=== PATIENT | female | born 1960 | race Caucasian/White ===

== ENCOUNTER → 2024-12-08 | Outpatient (CLI) | payer MEDICARE ==
[2024-12-08 12:29] LABS: Source, Urine Clean Catch
[2024-12-08 16:22] LABS: Appearance, Urine Clear (Clear); Bilirubin, Urine Neg (Neg); Blood, Urine 3+ (Neg); Color, Urine Yellow (P-Yellow); Glucose Qualitative, Urine Neg (Neg); Ketones, Urine Neg (Neg); Leukocyte Esterase, Urine Neg (Neg); Nitrite, Urine Neg (Neg); Protein, Urine Neg (Neg); Urobilinogen, Urine NORM (Normal)
[2024-12-08 16:34] LABS: Bacteria Few /hpf; Squamous Epithelial Cells Mod /hpf (Few); White Blood Cells, Urine 0-2 /hpf (0-5)
[2024-12-08 20:41] LABS: Free Thyroxine 1.03 ng/dL (0.70-1.60); Thyroid Stimulating Hormone 4.78 uIU/mL (0.360-4.800)
== END | disposition home or self-care (01) ==
LOC: LAB 12:26 → LAB SHORT 12:26
PROVIDERS: Physician Assistant
DX: E03.9 Hypothyroidism, unspecified (principal); R30.0 Dysuria
CPT/HCPCS: 36415; 81001; 84439; 84443

== ENCOUNTER 2025-05-08 11:05 | Day surgery (SDC) | payer OTHER, MEDICARE ==
[~2025-05-08] VITALS: Ht 167.6 cm; Wt 166.4 kg
[2025-05-08] VITALS (10 sets, daily range): BP systolic 96–161; BP diastolic 49–86
[~2025-05-08 11:05] MED LIST: ASPIR 8181 M1 PO; CYCL10 PO; FURO20 PO; OXYC5 PO; Synthroid200 MCG PO
--- NOTE | 2025-05-08 11:52 | NUR ---
Ambulatory in Day Surgery. History, Chart, Medications and Allergies reviewed before start of procedure. Patient confirms NPO status and agrees with scheduled surgery. Pre-Op teaching done. Pt verbalizes understanding. Patient States Post-Procedure ride home has been arranged. Pt belongings placed underneath gurney for safekeeping. Pt glasses in belongings bag underneath gurney for safekeeping.
[2025-05-08] MEDS ORDERED: FentaNYL Citrate 50 MCG/ML 2 ML Injection ONE (12:28)
[2025-05-08] MEDS ORDERED: Rocuronium Bromide 10 MG/ML 5ML Injection IV ONE (12:47)
[2025-05-08] MEDS ORDERED: SuccINYLCHOLINE Chloride 100 MG/5 ML 5MLSYR ONE (12:47)
[2025-05-08] MEDS ORDERED: Dexamethasone Sod Phos 10 MG/ML 1ML VIAL ONE (12:48)
[2025-05-08] MEDS ORDERED: Ondansetron HCl 2 MG / ML 2ML Vial ONE (12:48)
[2025-05-08] MEDS ORDERED: Sugammadex Sodium 200 MG/2ML SDV (100 MG/ML) ONE (12:48)
[2025-05-08] MEDS ORDERED: Ketorolac Tromethamine 30mg Vial ONE (12:48)
[2025-05-08] MEDS ORDERED: HYDROmorphone HCl/Pf 1MG SYR IV PRN (12:55)
[2025-05-08] MEDS ORDERED: Morphine Sulfate 4 MG/1 ML Injection IV PRN (12:55)
[2025-05-08] MEDS ORDERED: Metoclopramide HCl 5MG / ML 2ML Vial IV PRN (12:55)
[2025-05-08] MEDS ORDERED: Ondansetron HCl 2 MG / ML 2ML Vial IV PRN (12:55)
[2025-05-08] MEDS ORDERED: Albuterol 2.5 MG/3 ML VIAL INH PRN (13:00)
[2025-05-08] MEDS ORDERED: FentaNYL Citrate 50 MCG/ML 2 ML Injection IV PRN (13:00)
[2025-05-08] MEDS ORDERED: OxyCODONE 5 mg/Acetamin 325 mg TABLET PO PRN (13:20)
[2025-05-08] MEDS ORDERED: HYDROmorphone HCl/Pf 1MG SYR ONE (13:26)
--- NOTE | 2025-05-08 14:35 | NUR ---
Discharge instructions reviewed with patient. Patient verbalizes understanding. Copy given to patient to take home. Discharged via wheelchair to private car for ride home.
== END 2025-05-08 14:30 | disposition home or self-care (01) ==
LOC: ORSCMMR 11:05 → ORD 13:00 → ORSCMMR 14:30 → ORD 15:00
PROVIDERS: Obstetrics & Gynecology
PROC: 0UDB8ZX Extraction of Endometrium, Via Natural or Artificial Opening Endoscopic, Diagnostic (ICD-10-PCS; principal; 2025-05-08 13:00)
DX: N92.0 Excessive and frequent menstruation with regular cycle (principal); R93.89 Abnormal findings on diagnostic imaging of other specified body structures; N85.01 Benign endometrial hyperplasia; N95.2 Postmenopausal atrophic vaginitis; I10 Essential (primary) hypertension; G47.33 Obstructive sleep apnea (adult) (pediatric); K21.9 Gastro-esophageal reflux disease without esophagitis; E66.01 Morbid (severe) obesity due to excess calories; Z68.43 Body mass index [BMI] 50.0-59.9, adult; Z79.899 Other long term (current) drug therapy
CPT/HCPCS: 88305; 93005; 93010; J0330; J1100; J1171; J1885; J2405; J2704; J3010; J7120